=== PATIENT | female | born 1980 | race Caucasian/White ===

== ENCOUNTER 2023-12-03 10:57 | Day surgery (SDC) | payer OTHER ==
[2023-12-03] MEDS ORDERED: Sodium Chloride 0.9(Preservative Free) 10 ML IJ ONE (10:58)
[2023-12-03] MEDS ORDERED: LIDOCAINE HCL 1% 50 MG/5 ML VL PF IJ ONE (10:58)
[2023-12-03] MEDS ORDERED: Depo-Medrol 40 MG/ML IM ONE (10:58)
[2023-12-03 12:07] LABS: HCG URINE TEST NEGATIVE (NEGATIVE)
[2023-12-03] MEDS ORDERED: Lactated Ringers 1,000 ML IV ONE (12:26)
[2023-12-03] MEDS ORDERED: DIPRIVAN 200 MG/20 ML IV ONE (12:30)
--- NOTE | 2023-12-03 13:38 | XRAY ---
Indication: Lumbar BRUNILDA. Intraoperative fluoroscopy provided for 27 seconds. 5 digital spot images submitted for interpretation demonstrates posterior needle tip projecting posterior to lumbosacral junction. Small amount of contrast injected for needle tip placement. Correlate with intraoperative findings/report.
--- NOTE | 2023-12-03 14:10 | XRAY ---
27 seconds of fluoroscopy was used in surgery for a lumbar BRUNILDA.
== END 2023-12-03 13:10 | disposition home or self-care (01) ==
LOC: SDC-PAIN 10:57
PROVIDERS: ATTEND Psychiatry & Neurology Pain Medicine
DX: M54.16 Radiculopathy, lumbar region (principal)
CPT/HCPCS: 62323; 72100; 77003; 81025; J1030; J2001; J2704; Q9966

== ENCOUNTER 2024-04-07 12:16 | Day surgery (SDC) | payer OTHER ==
[2024-04-07] MEDS ORDERED: Depo-Medrol 40 MG/ML IM ONE (12:17)
[2024-04-07] MEDS ORDERED: Sodium Chloride 0.9(Preservative Free) 10 ML IJ ONE (12:17)
[2024-04-07] MEDS ORDERED: LIDOCAINE HCL 1% 50 MG/5 ML VL PF IJ ONE (12:17)
[2024-04-07 13:06] LABS: HCG URINE TEST NEGATIVE (NEGATIVE)
[2024-04-07] MEDS ORDERED: DIPRIVAN 200 MG/20 ML IV ONE (14:15)
[2024-04-07] MEDS ORDERED: Lactated Ringers 1,000 ML IV ONE (14:35)
--- NOTE | 2024-04-07 15:16 | XRAY ---
Indication: Lumbar BRUNILDA. Intraoperative fluoroscopy provided for 19 seconds. 2 digital spot image submitted for interpretation demonstrates posterior needle tip projecting just posterior to lumbosacral junction interspace. Small amount of contrast injected for needle tip placement. Correlate with intraoperative findings/report.
--- NOTE | 2024-04-07 15:17 | XRAY ---
19 seconds of fluoroscopy was used in surgery for a lumbar BRUNILDA.
== END 2024-04-07 15:00 | disposition home or self-care (01) ==
LOC: SDC-PAIN 12:16
PROVIDERS: ATTEND Psychiatry & Neurology Pain Medicine
DX: M54.16 Radiculopathy, lumbar region (principal)
CPT/HCPCS: 62323; 72100; 77003; 81025; J2001; J2704; Q9966

== ENCOUNTER 2024-09-08 09:34 | Day surgery (SDC) | payer OTHER ==
[2024-09-08 09:55] LABS: HCG URINE TEST NEGATIVE (NEGATIVE)
[2024-09-08] MEDS ORDERED: propofoL IV ONE (11:35)
--- NOTE | 2024-09-08 13:18 | XRAY ---
Indication: Caudal BRUNILDA. Intraoperative fluoroscopy provided for 10 seconds. 2 digital spot images submitted for interpretation demonstrates caudal needle tip projecting mid sacrum. Small amount of contrast injected for needle tip placement. Correlate with intraoperative findings/report.
--- NOTE | 2024-09-08 13:30 | XRAY ---
10 seconds of fluoroscopy was used in surgery for a caudal BRUNILDA.
== END 2024-09-08 12:07 | disposition home or self-care (01) ==
LOC: SDC-PAIN 09:34
PROVIDERS: ATTEND Psychiatry & Neurology Pain Medicine
DX: M54.16 Radiculopathy, lumbar region (principal)
CPT/HCPCS: 62323; 72220; 77003; 81025; J2704; Q9966